=== PATIENT | female | born 1940 | race Caucasian/White ===

== ENCOUNTER 2020-02-26 06:48 | Day surgery (SDC) | payer OTHER ==
[~2020-02-26] VITALS: Ht 170.2 cm; Wt 53.3 kg
[~2020-02-26 06:48] MED LIST: AMLO10 PO; ASPI325 PO; LORA.5 PO; METO25ER PO; NAPR220 PO; PRED20 PO
[2020-02-26] MEDS ORDERED: Prinivil10 MG PO (07:02)
[2020-02-26] MEDS ORDERED: COLCHICINE0.6 MG (07:02)
== END 2020-02-26 09:30 | disposition home or self-care (01) ==
LOC: ORSCSDS 06:48
PROVIDERS: Internal Medicine Gastroenterology
PROC: 0DJD8ZZ Inspection of Lower Intestinal Tract, Via Natural or Artificial Opening Endoscopic (ICD-10-PCS; principal; 2020-02-26 08:00)
PROC: 0DB68ZX Excision of Stomach, Via Natural or Artificial Opening Endoscopic, Diagnostic (ICD-10-PCS; principal; 2020-02-26 08:00)
DX: R19.4 Change in bowel habit (principal); R10.13 Epigastric pain; Z80.0 Family history of malignant neoplasm of digestive organs; B37.81 Candidal esophagitis; K57.30 Diverticulosis of large intestine without perforation or abscess without bleeding; K64.8 Other hemorrhoids; I10 Essential (primary) hypertension; Z87.891 Personal history of nicotine dependence; Z79.899 Other long term (current) drug therapy
CPT/HCPCS: 88305; 88342; J0330; J0461; J2405; J2704; J7120

== ENCOUNTER → 2020-12-23 | Outpatient (CLI) | payer OTHER ==
[~2020-12-23] MED LIST changes: +COLCHICINE0.6 MG; +Prinivil10 MG PO
[2020-12-26 10:35] LABS: Bilirubin, Urine Neg (Neg); Blood, Urine Neg (Neg); Glucose Qualitative, Urine Neg (Neg); Ketones, Urine Neg (Neg); Leukocyte Esterase, Urine Neg (Neg); Nitrite, Urine Neg (Neg); Protein, Urine Neg (Neg); Urobilinogen, Urine NORM (Normal)
[2020-12-26 10:47] LABS: Appearance, Urine Clear (Clear); Color, Urine Yellow (P-Yellow)
== END | disposition home or self-care (01) ==
LOC: LAB SHORT 10:00 → LAB 10:00
PROVIDERS: Internal Medicine
DX: N39.41 Urge incontinence (principal)
CPT/HCPCS: 81003

== ENCOUNTER → 2021-02-17 | Outpatient (CLI) | payer OTHER | END | disposition home or self-care (01) | LOC: LAB SHORT 14:08 → LAB 14:08 | DX: R33.9 Retention of urine, unspecified (principal) | CPT/HCPCS: 87086 ==

== ENCOUNTER 2021-05-31 10:05 | Day surgery (SDC) | payer OTHER ==
[~2021-05-31] VITALS: Ht 170.2 cm; Wt 53.7 kg
--- NOTE | 2021-05-31 10:29 | NUR ---
05/31/21 Araceli Morgan 1 TRY RIGHT HAND NO FLASH
== END 2021-05-31 12:10 | disposition home or self-care (01) ==
LOC: ORSCSDS 10:05
PROVIDERS: Internal Medicine Gastroenterology
PROC: 0DB58ZX Excision of Esophagus, Via Natural or Artificial Opening Endoscopic, Diagnostic (ICD-10-PCS; principal; 2021-05-31 11:15)
PROC: 0D758ZZ Dilation of Esophagus, Via Natural or Artificial Opening Endoscopic (ICD-10-PCS; principal; 2021-05-31 11:15)
DX: R13.10 Dysphagia, unspecified (principal); B37.81 Candidal esophagitis; Z80.0 Family history of malignant neoplasm of digestive organs; Z87.11 Personal history of peptic ulcer disease; Z87.898 Personal history of other specified conditions; Z79.899 Other long term (current) drug therapy
CPT/HCPCS: 88305; J2704; J7120

== ENCOUNTER 2021-10-04 07:28 | Day surgery (SDC) | payer OTHER ==
[~2021-10-04] VITALS: Ht 167.6 cm; Wt 55.8 kg
--- NOTE | 2021-10-04 07:49 | NUR ---
10/04/21 0749 Snehal Michelle TETRACAINE AT 0744 AND PLEDGET AT 0746 PER ORDERS IN RIGHT EYE
== END 2021-10-04 09:25 | disposition home or self-care (01) ==
LOC: ORSCSDS 07:28
PROVIDERS: Ophthalmology
PROC: 08RJ3JZ Replacement of Right Lens with Synthetic Substitute, Percutaneous Approach (ICD-10-PCS; principal; 2021-10-04 08:30)
DX: H25.11 Age-related nuclear cataract, right eye (principal); I10 Essential (primary) hypertension; Z79.899 Other long term (current) drug therapy
CPT/HCPCS: J2001; J2250; J3301; V2632

== ENCOUNTER 2021-11-15 06:30 | Day surgery (SDC) | payer OTHER ==
[~2021-11-15] VITALS: Ht 167.6 cm; Wt 59.3 kg
[~2021-11-15 06:30] MED LIST changes: +DULO30 PO; +Diflucan100 MG PO; +Magic Bullet10 MG PR; +OMEP20ER PO
--- NOTE | 2021-11-15 06:56 | NUR ---
11/15/21 0656 STEVE GRAHAM TETRACINE DROP PLACED AT 6:48, PLEDGETT PLACED AT 6:50, PT TOLERATED WELL
== END 2021-11-15 08:04 | disposition home or self-care (01) ==
LOC: ORSCSDS 06:30
PROVIDERS: Ophthalmology
PROC: 08RK3JZ Replacement of Left Lens with Synthetic Substitute, Percutaneous Approach (ICD-10-PCS; principal; 2021-11-15 07:30)
DX: H25.12 Age-related nuclear cataract, left eye (principal); I10 Essential (primary) hypertension; Z79.899 Other long term (current) drug therapy
CPT/HCPCS: J2001; J2250; J3010; J3301; J7040; V2632

== ENCOUNTER 2022-03-14 08:45 | Day surgery (SDC) | payer OTHER ==
[~2022-03-14] VITALS: Ht 167.6 cm; Wt 58.5 kg
== END 2022-03-14 10:15 | disposition home or self-care (01) ==
LOC: ORSCSDS 08:45
PROVIDERS: Internal Medicine Gastroenterology
PROC: 0DJ08ZZ Inspection of Upper Intestinal Tract, Via Natural or Artificial Opening Endoscopic (ICD-10-PCS; principal; 2022-03-14 10:00)
DX: R13.10 Dysphagia, unspecified (principal); Z87.11 Personal history of peptic ulcer disease; Z80.0 Family history of malignant neoplasm of digestive organs; Z79.899 Other long term (current) drug therapy
CPT/HCPCS: J2704; J7120

== ENCOUNTER → 2022-05-09 | Outpatient (CLI) | payer OTHER | END | disposition home or self-care (01) | LOC: LAB SHORT 11:01 → LAB 11:01 | DX: D48.5 Neoplasm of uncertain behavior of skin (principal) | CPT/HCPCS: 88305 ==

== ENCOUNTER → 2023-08-21 | Outpatient (CLI) | payer OTHER ==
[~2023-08-21] MED LIST changes: +Aspir 8181 MG PO; +HYDROXYCHLOROQ100 MG PO; +OXYC5 PO; +PROM25 PO; +TRAM50 PO
== END ==
LOC: LAB 15:02 → LAB SHORT 15:02
DX: L98.9 Disorder of the skin and subcutaneous tissue, unspecified (principal)
CPT/HCPCS: 88304

== ENCOUNTER 2025-03-16 13:59 | Day surgery (SDC) | payer OTHER ==
[2025-03-16 14:08] VITALS: BP 129/64
== END 2025-03-16 14:30 | disposition home or self-care (01) ==
LOC: ATC 13:59
DX: M81.0 Age-related osteoporosis without current pathological fracture (principal); I10 Essential (primary) hypertension; Z87.891 Personal history of nicotine dependence; Z79.899 Other long term (current) drug therapy; Z88.8 Allergy status to other drugs, medicaments and biological substances
CPT/HCPCS: 96365; J3489